=== PATIENT | male | born 1945 | race Caucasian/White ===

== ENCOUNTER 2022-03-05 09:15 | Emergency (ER) | payer OTHER ==
[2022-03-05 09:37] VITALS: BMI 28.3
[2022-03-05 12:13] LABS: BASO % 0.4 % (0-2.0); EOS % 1.6 % (0-4.5); HEMATOCRIT 42.9 % (35.4-49); HEMOGLOBIN 14.4 GM/dL (11.7-16.9); LYMPH % 15.3 % (8-40); MCH 30.3 pg (25.7-33.7); MCHC 33.5 g/dl (32.0-35.9); MEAN CELL VOLUME 90.5 fl (80-96); MEAN PLT VOLUME 9.2 fl (7.5-11.1); MONO % 6.3 % (3.8-10.2); NEUT % 76.4 % (42.8-82.8); PH,URINE 5.5 (5.0-8.0); PLATELET COUNT 242 10^3/uL (134-434); RBC 4.74 M/mm3 (4.00-5.60); RDW 13.7 % (11.9-15.9); URINE APPEARANCE CLEAR; URINE BILIRUBIN NEGATIVE (NEGATIVE); URINE COLOR YELLOW; URINE GLUCOSE (UA) NEGATIVE (NEGATIVE); URINE KETONE NEGATIVE (NEGATIVE); URINE LEUK ESTERASE NEGATIVE (NEGATIVE); URINE NITRITE NEGATIVE (NEGATIVE); URINE PROTEIN TRACE (NEGATIVE); URINE UROBILINOGEN 0.2 mg/dL (0.2-1.0); WHITE BLOOD COUNT 6.4 K/mm3 (4.0-10.0)
[2022-03-05 12:21] LABS: INR 1.08 (0.83-1.09); PROTHROMBIN TIME (PATIENT) 12.4 SEC (9.7-13.0)
[2022-03-05 12:23] LABS: ACTIVATED PTT 25.4 SECONDS (25.2-36.5)
[2022-03-05 12:35] LABS: CALCIUM 8.9 mg/dL (8.5-10.1)
[2022-03-05 12:36] LABS: ALBUMIN 4.1 g/dl (3.4-5.0); BLOOD UREA NITROGEN 20.7 mg/dL (7-18); MAGNESIUM 2.3 mg/dL (1.8-2.4)
[2022-03-05 12:39] LABS: CREATININE 1.1 mg/dL (0.55-1.3)
[2022-03-05 12:41] LABS: BILIRUBIN,TOTAL 0.7 mg/dL (0.2-1); TOT PROT 7.5 g/dl (6.4-8.2)
[2022-03-05 13:16] VITALS: RESP 20
[2022-03-05 13:24] VITALS: BP 130/88; PULSE 71; TEMP 98.2
== END 2022-03-05 13:52 | disposition home or self-care (01) ==
LOC: JER 09:15
DX: R11.10 Vomiting, unspecified (principal); R05.1 Acute cough
CPT/HCPCS: 0241U-QW; 36415; 71046-TC-FY; 80053; 81003; 83735; 84484; 85025; 85610; 85730; 93005; 93010; 99285-25

== ENCOUNTER 2024-05-08 11:41 | Emergency (ER) | payer OTHER ==
[2024-05-08 12:06] VITALS: TEMP 98.6; BMI 26.7
[2024-05-08 13:17] LABS: INR 1.06 (0.83-1.09); PROTHROMBIN TIME (PATIENT) 11.5 SEC (9.7-13.0)
[2024-05-08 13:19] LABS: BASO % 0.2 % (0-2.0); EOS % 0.6 % (0-4.5); HEMATOCRIT 39.2 % (35.4-49); HEMOGLOBIN 13.5 GM/dL (11.7-16.9); LYMPH % 9.6 % (8-40); MCH 31.1 pg (25.7-33.7); MCHC 34.4 g/dl (32.0-35.9); MEAN CELL VOLUME 90.3 fl (80-96); MEAN PLT VOLUME 8.8 fl (7.5-11.1); NEUT % 84.6 % (42.8-82.8); PLATELET COUNT 203 10^3/uL (134-434); RBC 4.34 M/mm3 (4.00-5.60); RDW 13.6 % (11.9-15.9); WHITE BLOOD COUNT 9.1 K/mm3 (4.0-10.0)
[2024-05-08 13:20] LABS: ACTIVATED PTT 25.3 SECONDS (25.2-36.5)
[2024-05-08 13:46] LABS: POTASSIUM 4.9 mmol/L (3.5-5.1)
[2024-05-08 13:50] LABS: ALBUMIN 4.1 g/dl (3.4-5.0); CALCIUM 9.1 mg/dL (8.5-10.1)
[2024-05-08 13:51] LABS: BLOOD UREA NITROGEN 29.9 mg/dL (7-18); MAGNESIUM 2.1 mg/dL (1.8-2.4)
[2024-05-08 13:54] LABS: CREATININE 1.3 mg/dL (0.55-1.3)
[2024-05-08 13:55] LABS: BILIRUBIN,TOTAL 0.6 mg/dL (0.2-1); TOT PROT 7.5 g/dl (6.4-8.2)
[2024-05-08 15:43] LABS: HIV INTERPRETATION NEGATIVE (NEGATIVE)
[2024-05-08 16:08] VITALS: BP 143/90; PULSE 71; RESP 15
== END 2024-05-08 16:08 | disposition home or self-care (01) ==
LOC: JER 11:41
DX: R55 Syncope and collapse (principal); R42 Dizziness and giddiness; R53.1 Weakness; M25.521 Pain in right elbow; Z20.822 Contact with and (suspected) exposure to COVID-19
CPT/HCPCS: 0241U-QW; 36415; 70450-TC; 71045-TC-FY; 72125-TC; 73070-TC-RT-FY; 80053; 82962; 83735; 83880; 84484; 85025; 85610; 85730; 86803; 86850; 86900; 86901; 87389; 93005; 93010; 99285-25